=== PATIENT | female | born 1995 | race Caucasian/White ===

== ENCOUNTER 2021-11-05 18:21 | Emergency (ER) | payer MEDICAID ==
[2021-11-05 19:02] LABS: ANION GAP 6.9 meq/L (7-15); CHLORIDE,CL 104 mmol/L (98-107); SODIUM,NA 140 mmol/L (136-145)
== END 2021-11-05 20:30 | disposition home or self-care (01) ==
LOC: LL.ED 18:21
DX: K59.00 Constipation, unspecified (principal)
CPT/HCPCS: 36415; 80053; 85025; 99283